=== PATIENT | female | born 1985 | race Hispanic/Latino ===

== ENCOUNTER 2021-08-27 05:32 | Emergency (ER) | payer OTHER ==
[~2021-08-27] VITALS: Ht 162.6 cm; Wt 120.7 kg
== END 2021-08-27 05:52 | disposition home or self-care (01) ==
LOC: ER 05:38
DX: L03.116 Cellulitis of left lower limb (principal); E11.9 Type 2 diabetes mellitus without complications; E66.9 Obesity, unspecified
CPT/HCPCS: 99282